=== PATIENT | female | born 1995 | race Caucasian/White ===

== ENCOUNTER 2022-01-06 07:00 | Inpatient (IN) | payer BC ==
[2022-01-06 07:19] VITALS: BMI 25.2
[2022-01-06] MEDS ORDERED: ePHEDrine Sulfate 50 MG/10 ML VIAL ONE (08:00)
[2022-01-06] MEDS ORDERED: Bupivacaine/Epinephrine 0.25% 30 ML VIAL ONE (08:00)
[2022-01-06] MEDS ORDERED: Carboprost 250 MCG/ML AMP IM PRN (09:13)
[2022-01-06] MEDS ORDERED: Methylergonovine 0.2 MG/ML VIAL IM PRN (09:13)
[2022-01-06] MEDS ORDERED: Lidocaine 1% (PF) 30 ML VIAL SC PRN (09:13)
[2022-01-06] MEDS ORDERED: Misoprostol 200 MCG TAB PR PRN (09:13)
[2022-01-06] MEDS ORDERED: Butorphanol Tartrate 1 MG/ML VIAL SLOW IVP PRN (09:13)
[2022-01-06] MEDS ORDERED: Ondansetron PF 4 MG/2 ML Vial IVP PRN ×3 (09:13→18:43)
[2022-01-06] MEDS ORDERED: hydrALAZINE 20 MG/ML VIAL SLOW IVP PRN ×2 (09:13→18:43)
[2022-01-06] MEDS ORDERED: Acetaminophen 500 MG TAB PO PRN (09:13)
[2022-01-06] MEDS ORDERED: Ibuprofen 800 MG TAB PO PRN (09:13)
[2022-01-06] MEDS ORDERED: Promethazine HCl 25 MG/ML VIAL IM PRN ×2 (09:13→13:54)
[2022-01-06] MEDS ORDERED: Penicillin G Potassium 5 MILL.UNITS in Sodium Chloride 0.9% 100 ML IVPB SCH (09:15)
[2022-01-06] MEDS ORDERED: NS w/ Oxytocin 30 units 500 ML IV SCH ×3 (09:15→18:45)
[2022-01-06] MEDS: Lactated Ringer's 1,000 ML IV SCH ×3 (09:46→13:11)
[2022-01-06 10:35] LABS: Hemoglobin 11.7 g/dL (12.0-15.5); Mean Corpuscular HGB CONC 34.6 g/dL (32.0-36.0); Mean Corpuscular Hemoglobin 31.1 pg (27.0-33.0); Mean Corpuscular Volume 89.9 fl (81.6-98.3); Mean Platelet Volume 11.2 fl (7.4-10.4); Platelet Count 205 10x3/uL (150-450); RBC Distribution Width 12.7 % (11.5-14.5); Red Blood Cell (RBC) Count 3.76 10x6/uL (3.90-5.03); White Blood Cell (WBC) Count 12.5 10x3/uL (3.5-10.5)
[2022-01-06] MEDS ORDERED: Fentanyl 2 mcg/Bup 0.1% Cadd 100 ML ONE ×2 (10:48→11:05)
[2022-01-06 11:12] LABS: HIV (1/2) Antibody/Antigen Non-Reactive (NonReactive); Hep B Surf Ag Non-Reactive S/CO (NonReactive)
[2022-01-06 11:13] LABS: SARS-CoV-2 NAA Rapid Test Not Detected (NotDetected)
[2022-01-06 11:42] LABS: HBSAg Index 0.21 S/CO (0-0.99)
[2022-01-06 12:57] LABS: Syphilis Antibody Nonreactive (Nonreactive); Syphilis Antibody Index 0.05 S/CO (<1.00 Non-Reactive)
[2022-01-06] MEDS ORDERED: Penicillin G 2.5 MILL.units 2.5 MILL.UNITS in Premix Bag 1 BAG IVPB SCH (13:15)
[2022-01-06] MEDS ORDERED: Naloxone HCl 0.4 mg/ml Vial IVP PRN ×2 (13:54)
[2022-01-06] MEDS ORDERED: ePHEDrine Sulfate 50 MG/10 ML VIAL SLOW IVP PRN (13:54)
[2022-01-06] MEDS ORDERED: Moisturizing Cream (Eucerin) 113 GM JAR TOP PRN (13:54)
[2022-01-06] MEDS ORDERED: diphenhydrAMINE 50 MG/ML VIAL IVP PRN (13:54)
[2022-01-06] MEDS ORDERED: Acetaminophen 325 MG TAB PO PRN (13:54)
[2022-01-06] MEDS ORDERED: Lactated Ringer's 500 ML IV PRN (13:54)
[2022-01-06] MEDS ORDERED: Fentanyl 2 mcg/Bupivacaine 0.1% Cassette 100 ML EPIDURAL SCH (14:00)
[2022-01-06] MEDS ORDERED: Communication Order-Pharmacy FS SCH (14:00)
[2022-01-06] MEDS ORDERED: diphenhydrAMINE 25 MG CAP PO PRN (18:43)
[2022-01-06] MEDS ORDERED: HYDROcodone/Acetaminophen 5/325 mg Tablet PO PRN ×2 (18:43)
[2022-01-06] MEDS ORDERED: Zolpidem Tartrate 5 MG TAB PO PRN (18:43)
[2022-01-06] MEDS ORDERED: Preparation H Ointment 28 GM TUBE PR PRN (18:43)
[2022-01-06] MEDS ORDERED: Lanolin Ointment 7 GM TUBE TOP PRN (18:43)
[2022-01-06] MEDS ORDERED: Misoprostol 200 MCG TAB VAG PRN (18:43)
[2022-01-06] MEDS ORDERED: Benzocaine-Menthol 82.5 ML CAN TOP PRN (18:43)
[2022-01-06] MEDS ORDERED: Milk Of Magnesia 30 ML UDCUP PO PRN (18:43)
[2022-01-06] MEDS ORDERED: Bisacodyl 10 MG SUPP PR PRN (18:43)
[2022-01-06] MEDS ORDERED: Witch Hazel-Glycerin 1 EACH JAR TOP PRN (18:47)
[2022-01-06] MEDS: Docusate 100 MG CAP PO SCH (21:54)
[2022-01-06] MEDS: Ibuprofen 800 MG TAB PO SCH (21:54)
[2022-01-07] MEDS: Ibuprofen 800 MG TAB PO SCH ×3 (05:54→21:36)
[2022-01-07 06:01] LABS: Hemoglobin 10.6 g/dL (12.0-15.5); Mean Corpuscular HGB CONC 34.8 g/dL (32.0-36.0); Mean Corpuscular Hemoglobin 31.1 pg (27.0-33.0); Mean Corpuscular Volume 89.4 fl (81.6-98.3); Mean Platelet Volume 11.7 fl (7.4-10.4); Platelet Count 217 10x3/uL (150-450); RBC Distribution Width 12.9 % (11.5-14.5); Red Blood Cell (RBC) Count 3.41 10x6/uL (3.90-5.03); White Blood Cell (WBC) Count 18.4 10x3/uL (3.5-10.5)
[2022-01-07] MEDS: Ferrous Sulfate 325 MG TAB PO SCH ×2 (07:30→16:05)
[2022-01-07] MEDS: Docusate 100 MG CAP PO SCH ×2 (10:01→21:36)
[2022-01-07] MEDS: Prenatal Vitamin 1 TAB PO SCH (10:01)
[2022-01-07] MEDS ORDERED: Boostrix 0.5 ML (Tdap) VIAL IM ONE (18:43)
[2022-01-07 20:17] VITALS: TEMP 98
[2022-01-08] MEDS: Ibuprofen 800 MG TAB PO SCH (05:18)
[2022-01-08 07:52] VITALS: BP 105/57
[2022-01-08] MEDS: Docusate 100 MG CAP PO SCH (08:40)
[2022-01-08] MEDS: Prenatal Vitamin 1 TAB PO SCH (08:40)
[2022-01-08] MEDS: Ferrous Sulfate 325 MG TAB PO SCH (08:41)
== END 2022-01-08 13:14 | disposition home or self-care (01) | DRG 807 ==
LOC: CSHLD/OP 07:00 → CSHLD 10:06 → CSHPED 20:48
PROVIDERS: ADMIT Obstetrics & Gynecology; ATTEND Obstetrics & Gynecology
PROC: 10E0XZZ Delivery of Products of Conception, External Approach (ICD-10-PCS; principal; 2022-01-06)
PROC: 10907ZC Drainage of Amniotic Fluid, Therapeutic from Products of Conception, Via Natural or Artificial Opening (ICD-10-PCS; 2022-01-06)
DX: O80 Encounter for full-term uncomplicated delivery (principal); Z37.0 Single live birth; Z3A.38 38 weeks gestation of pregnancy; Z20.822 Contact with and (suspected) exposure to COVID-19; Z79.899 Other long term (current) drug therapy
CPT/HCPCS: 36415; 51702; 85027; 86780; 86850; 86900; 86901; 87340; 87389; 99285; J2590; J7120; U0002

== ENCOUNTER 2023-04-29 14:22 | Outpatient (CLI) | payer BC ==
[2023-04-29 15:43] LABS: Hematocrit 41.7 % (34.9-44.5)
[2023-04-29 17:20] LABS: BHCG - Serum Negative (NEGATIVE); Pregs Control Background? CLEAR/WHITE (CLR/WHITE); Pregs Control Bar Appear? YES (CONTROL BAR)
== END 2023-04-29 14:23 | disposition home or self-care (01) ==
LOC: CSHLAB 14:22
PROVIDERS: ATTEND Otolaryngology Otolaryngic Allergy
DX: Z01.812 Encounter for preprocedural laboratory examination (principal); E04.9 Nontoxic goiter, unspecified; E07.9 Disorder of thyroid, unspecified
CPT/HCPCS: 84703; 85014

== ENCOUNTER 2023-05-04 05:45 | Observation (INO) | payer BC ==
[2023-05-04] MEDS ORDERED: Lidocaine 1% w/Epinephrine 1:100K 20 ML VIAL ONE (06:10)
[2023-05-04] MEDS ORDERED: PROPOFOL 40 ML ONE (06:38)
[2023-05-04] MEDS ORDERED: Ondansetron PF 4 MG/2 ML Vial ONE (06:38)
[2023-05-04] MEDS ORDERED: Rocuronium Bromide 10 MG/ML (10ML VIAL) ONE (06:38)
[2023-05-04] MEDS ORDERED: Lidocaine 1% PF 5 ML VIAL ONE (06:38)
[2023-05-04] MEDS ORDERED: Dexamethasone 20 MG/5 ML VIAL ONE (06:38)
[2023-05-04] MEDS ORDERED: fentaNYL 50 mcg/mL 1 mL Vial ONE ×2 (06:38→09:33)
[2023-05-04] MEDS ORDERED: Glycopyrrolate 0.2 MG/ML 5 ML SYRINGE ONE (06:38)
[2023-05-04] MEDS ORDERED: Dexmedetomidine 200 MCG/2 ML VIAL ONE (06:53)
[2023-05-04] MEDS ORDERED: Midazolam HCl 2 mg/2 ml Vial ONE (06:54)
[2023-05-04] MEDS ORDERED: Scopolamine 1.5 mg/72 hour Patch ONE (06:55)
[2023-05-04] MEDS ORDERED: CEFAZOLIN 1 GM VIAL ONE (06:56)
[2023-05-04] MEDS ORDERED: diphenhydrAMINE 50 MG/ML VIAL ONE (07:05)
[2023-05-04] MEDS ORDERED: Lidocaine 1% PF 5 ML VIAL FS SCH (07:15)
[2023-05-04] MEDS ORDERED: Lactated Ringer's 1,000 ML IV SCH (07:15)
[2023-05-04] MEDS ORDERED: Midazolam HCl 2 mg/2 ml Vial IVP SCH (07:30)
[2023-05-04] MEDS ORDERED: Meperidine HCl/PF 25 MG/ML VIAL SLOW IVP PRN (09:45)
[2023-05-04 10:53] VITALS: BMI 21.8
[2023-05-04] MEDS ORDERED: Ondansetron PF 4 MG/2 ML Vial IVP PRN (11:11)
[2023-05-04] MEDS ORDERED: Acetaminophen 325 MG TAB PO PRN (11:11)
[2023-05-04] MEDS ORDERED: Ondansetron ODT 4 MG TAB PO PRN (11:11)
[2023-05-04] MEDS ORDERED: Acetaminophen/Codeine 30-300mg Tablet PO PRN ×2 (11:14)
[2023-05-04] MEDS ORDERED: Morphine 2 MG/ML VIAL SLOW IVP PRN (11:30)
[2023-05-04] MEDS ORDERED: FLU VACC QS2023-24(6MOS UP)/PF 60 MCG/0.5 ML SYRINGE IM ONE (14:00)
[2023-05-05 04:44] VITALS: BP 88/60; TEMP 98.3
== END 2023-05-05 08:00 | disposition home or self-care (01) ==
LOC: CSHSDC 05:45 → CSHIMCU 10:42 → INTOOBSV 10:42
PROVIDERS: ADMIT Otolaryngology Otolaryngic Allergy; ATTEND Otolaryngology Otolaryngic Allergy
PROC: 0GTG0ZZ Resection of Left Thyroid Gland Lobe, Open Approach (ICD-10-PCS; principal; 2023-05-04)
DX: E04.9 Nontoxic goiter, unspecified (principal); J39.8 Other specified diseases of upper respiratory tract; R09.89 Other specified symptoms and signs involving the circulatory and respiratory systems
CPT/HCPCS: 88305; 88307; 88331; 94760; J0690; J1100; J1200; J2250; J2405; J2704; J3010; J7120

== ENCOUNTER 2025-05-31 08:56 | Inpatient (IN) | payer BC ==
[2025-05-31] MEDS ORDERED: Methylergonovine 0.2 MG/ML VIAL IM PRN ×2 (09:00→18:10)
[2025-05-31] MEDS ORDERED: hydrALAZINE 20 MG/ML VIAL SLOW IVP PRN ×2 (09:00→18:10)
[2025-05-31] MEDS ORDERED: Ibuprofen 800 MG TAB PO PRN (09:00)
[2025-05-31] MEDS ORDERED: Carboprost 250 MCG/ML AMP IM PRN (09:00)
[2025-05-31] MEDS ORDERED: Ondansetron PF 4 MG/2 ML Vial IVP PRN ×3 (09:00→18:10)
[2025-05-31] MEDS ORDERED: Lidocaine 1% (PF) 30 ML VIAL SC PRN (09:00)
[2025-05-31] MEDS ORDERED: HYDROcodone/Acetaminophen 5/325 mg Tablet PO PRN ×3 (09:00→18:10)
[2025-05-31] MEDS ORDERED: Diphenoxylate HCl/Atropine Tablet PO PRN ×2 (09:00)
[2025-05-31] MEDS ORDERED: Acetaminophen 500 MG TAB PO PRN (09:00)
[2025-05-31] MEDS: Penicillin G Potassium 5 MILL.UNITS in Sodium Chloride 0.9% 100 ML IVPB SCH (09:46)
[2025-05-31 09:48] VITALS: BMI 26.9
[2025-05-31 10:04] LABS: Hematocrit 33.9 % (34.9-44.5); Hemoglobin 11.4 g/dL (12.0-15.5); Mean Corpuscular Hemoglobin 29.3 pg (27.0-33.0); Mean Corpuscular Volume 87.1 fL (81.6-98.3); Platelet Count 275 10x3/uL (150-450); Red Blood Cell (RBC) Count 3.89 10x6/uL (3.90-5.03); White Blood Cell (WBC) Count 12.06 10x3/uL (3.5-10.5)
[2025-05-31 10:41] LABS: HIV (1/2) Antibody/Antigen Non-Reactive (NonReactive); HIV 1/2 INDEX 0.12 S/CO (<1.00); Hep B Surf Ag - L&D Non-Reactive S/CO (NonReactive)
[2025-05-31 10:42] LABS: Syphilis Antibody Index 0.06 S/CO (<1.00 Non-Reactive)
[2025-05-31] MEDS: fentaNYL/Ropivacaine Epidural 100 ML ONE (10:53)
[2025-05-31] MEDS ORDERED: Acetaminophen 325 MG TAB PO PRN (10:57)
[2025-05-31] MEDS ORDERED: diphenhydrAMINE 50 MG/ML VIAL IVP PRN (10:57)
[2025-05-31] MEDS ORDERED: fentaNYL 2 mcg/Ropivacaine 0.2% Epidural 100 ML CADD EPIDURAL SCH (11:00)
[2025-05-31] MEDS ORDERED: Communication Order-Pharmacy FS SCH (11:00)
[2025-05-31] MEDS: Penicillin G 2.5 MILL.units 2.5 MILL.UNITS in Premix 1 BAG IVPB SCH (13:57)
[2025-05-31] MEDS: Oxytocin 30 units/NS 500 ML 500 ML IV SCH (13:58)
[2025-05-31] MEDS ORDERED: Milk Of Magnesia 30 ML UDCUP PO PRN (18:10)
[2025-05-31] MEDS ORDERED: Lanolin Ointment 7 GM TUBE TOP PRN (18:10)
[2025-05-31] MEDS ORDERED: Preparation H Ointment 28 GM TUBE PR PRN (18:10)
[2025-05-31] MEDS ORDERED: Bisacodyl 10 MG SUPP PR PRN (18:10)
[2025-05-31] MEDS ORDERED: Benzocaine-Menthol 82.5 ML CAN TOP PRN (18:10)
[2025-05-31] MEDS ORDERED: Oxytocin 30 units/NS 500 ML 500 ML IV SCH (18:15)
[2025-05-31] MEDS: Ibuprofen 800 MG TAB PO SCH (21:15)
[2025-06-01] MEDS: Ferrous Sulfate 325 MG TAB PO SCH (07:31)
[2025-06-01] MEDS ORDERED: Bupivacaine 0.25% HCL 30 ML VIAL ONE (11:48)
[2025-06-01] MEDS: HYDROcodone/Acetaminophen 5/325 mg Tablet PO PRN (11:56)
[2025-06-02 08:09] VITALS: BP 103/70; TEMP 97.3
== END 2025-06-02 11:40 | disposition home or self-care (01) | DRG 807 ==
LOC: CSHLD 08:56 → CSHPED 20:15
PROVIDERS: ADMIT Obstetrics & Gynecology; ATTEND Obstetrics & Gynecology
PROC: 10E0XZZ Delivery of Products of Conception, External Approach (ICD-10-PCS; principal; 2025-05-31)
DX: O99.824 Streptococcus B carrier state complicating childbirth (principal); Z37.0 Single live birth; O99.02 Anemia complicating childbirth; O76 Abnormality in fetal heart rate and rhythm complicating labor and delivery; Z79.899 Other long term (current) drug therapy; Z3A.37 37 weeks gestation of pregnancy
CPT/HCPCS: 51702; 85027; 86780; 86850; 86900; 86901; 87340; 87389; J0665; J2540; J2590; J7120